=== PATIENT | male | born 1950 | race Hispanic/Latino ===

== ENCOUNTER 2017-07-14 06:07 | Day surgery (SDC) | payer OTHER ==
[2017-07-13 06:49] VITALS: BMI 25.1
[2017-07-14] MEDS ORDERED: Midazolam 2 MG/2 ML VIAL ONE (07:12)
[2017-07-14] MEDS ORDERED: Propofol 10 mg/ml Inj (20 ML) ONE (07:12)
[2017-07-14] MEDS ORDERED: Lidocaine 1% Inj (20ml) ONE (07:13)
[2017-07-14 07:28] LABS: INR 1.05 (0.93-1.08); PARTIAL THROMBOPLASTIN TIME 29.5 Seconds (25.1-36.5); PROTHROMBIN TIME 12.1 SECONDS (9.4-12.5)
[2017-07-14] MEDS ORDERED: Succinylcholine 200 mg/10 ml Inj IV ONE (07:40)
[2017-07-14] MEDS ORDERED: Bupivacaine 0.5% Inj(30mL) ONE (07:53)
[2017-07-14] MEDS ORDERED: Bupivacaine 0.5% Inj(30mL) IJ ONE ×2 (08:05)
[2017-07-14] MEDS ORDERED: HYDROmorphone 0.5 mg/0.5 ml ISec IVP PRN ×2 (08:51→08:54)
[2017-07-14] MEDS ORDERED: Oxycodone/Acetaminophen 5/325 mg Tab PO PRN (08:56)
--- NOTE | 2017-07-14 08:59 | PCM.SURG1 ---
Surgeon's Initial Post Op Note - Surgeon's Notes Surgeon: Dr. Negron Flight Manager: Aissatou Edwards, PGY2. DRE [place] Pre-Operative Diagnosis: Subcutaneous mass of the posterior neck Operative Findings: large intermuscular lipomatous mass 10cm in diameter Post-Operative Diagnosis: same Operation Performed: Excision of 10 cm intermuscular lipoma of the posterior neck Specimen/Specimens Removed: mass Estimated Blood Loss: EBL {In ML}: 5 Post-Op Condition: Good Date of Surgery/Procedure: 07/14/17 Time of Surgery/Procedure: 08:00
[2017-07-14] MEDS ORDERED: Lactated Ringer's 1,000 ML IV SCH (09:00)
[2017-07-14 10:29] VITALS: RESP 18; TEMP 98
[2017-07-14 10:55] VITALS: BP 118/57; PULSE 81; O2SAT 96
--- NOTE | 2017-07-25 21:57 | OP ---
PROCEDURE DATE: 07/14/2017 PREOPERATIVE DIAGNOSIS: A large mass of the posterior neck. POSTOPERATIVE DIAGNOSIS: Large intramuscular lipoma of the posterior neck measuring 10 x 8 cm. SURGEON: Edwin Negron MD. OFFICE SERVICES ASSISTANT: Dr. Edwards. TYPE OF ANESTHESIA: General endotracheal anesthesia. ANESTHESIA ADMINISTERED BY: Rui Benítez MD. ESTIMATED BLOOD LOSS: Minimal. SPECIMEN: Large lipoma of the neck. INDICATION FOR PROCEDURE: Patient is a 66-year-old male with history of large mass increasing in size over the past year on his posterior neck, located slightly to the right of the midline. Patient was examined and seen in the office and noted that mass was fairly deep into the tissue and was scheduled for the repair, especially that he was complaining of some tenderness in the right shoulder and extending slightly to the right arm. DESCRIPTION OF PROCEDURE: The patient was brought to the operating room and placed on operating room table in supine position. The patient was connected to the EKG, blood pressure, and pulse oximetry monitors. The patient then underwent general endotracheal anesthesia, was prepped and draped in the prone position. Once this was done, we then proceeded with the surgery. First, a standard time-out procedure took place when everybody in the room agreed as to the patient's identity, diagnosis, and procedure to be performed. First, using the lidocaine mixed with Marcaine, the incision site was infiltrated and an incision was made using #15 blade. Carefully the incision was carried through the subcutaneous fat down to the capsule of the lipoma, which was right underneath the fascia and extending into the muscles of the neck. This was carefully teased out from all the loculations and from the muscle fibers and sent as specimen. The wound was copiously irrigated. All the irrigant fluids were suctioned out and dried out. The bleeding points were cauterized and the wounds were closed using 3-0 Vicryl for the deep layer and the fascial layer, 3-0 Vicryl for the subcutaneous deep dermal layer and 4-0 Monocryl for skin. A sterile Dermabond dressing was applied to the wound. The patient tolerated the procedure well and there were no complications. The patient was awakened and transferred to the recovery room for further observation. Edwin Negron MD [facility] # [id number]
== END 2017-07-14 11:05 | disposition home or self-care (01) ==
LOC: SDS 06:07
PROVIDERS: ATTEND General Practice
DX: D17.9 Benign lipomatous neoplasm, unspecified (principal)
CPT/HCPCS: 21554; 36415; 85610; 85730; 88307; J0330; J0690; J1170; J1885; J2250; J2405; J2704; J2765; J3010; J7120 ×2

== ENCOUNTER 2018-08-07 13:35 | Outpatient (CLI) | payer OTHER | END 2018-08-07 13:36 | disposition home or self-care (01) | LOC: CARDIO 13:36 ==